=== PATIENT | male | born 1955 | race African-American/Black ===

== ENCOUNTER 2023-11-13 00:48 | Inpatient (IN) | payer BC, OTHER ==
[~2023-11-13] VITALS: Ht 182.9 cm; Wt 67.0 kg
[2023-11-13 01:15] VITALS: PULSE 118; RESP 17; O2SAT 98
[2023-11-13 01:39] LABS: Basophils # (auto) 0 10 ^3/uL (0-0.2); Basophils % (auto) 0.2 % (0.0-2.0); Eosinophils # (auto) 0 10 ^3/uL (0-0.8); Eosinophils % (auto) 0.1 % (0.0-7.0); Hemoglobin 10.3 g/dL (13.5-17.5); Lymphocytes % (auto) 5.6 % (10.0-50.0); Mean Corpuscular Hemoglobin 28.2 pg (28.0-32.0); Mean Corpuscular Hgb Conc. 31.3 g/dL (32.0-36.0); Mean Corpuscular Volume 90.2 fL (80.0-100.0); Monocytes # (auto) 0.8 10 ^3/uL (0-1.3); Monocytes % (auto) 4.4 % (0.0-12.0); Neutrophils # (auto) 16.2 10 ^3/uL (1.6-8.6); Neutrophils % (auto) 89.7 % (37.0-80.0); Red Blood Cells 3.65 10^6/uL (4.5-5.90); Red Cell Distribution Width 17.5 % (11.8-14.3); White Blood Cell 18.1 10^3/uL (4.4-10.8)
[2023-11-13 02:00] VITALS: PULSE 118; RESP 15; O2SAT 99
[2023-11-13 02:03] LABS: Alanine Aminotransferase 11 U/L (7-40); Alkaline Phosphatase 112 U/L (46-116); Anion Gap 11 (5-15); BUN/Creatinine Ratio 19.7 (10.0-20.0); Blood Urea Nitrogen 35 mg/dL (9-23); Calcium 9.7 mg/dL (8.5-10.1); Carbon Dioxide 33 mmol/L (20-30); Chloride 93 mmol/L (98-107); Glucose 138 mg/dL (74-106); Sodium 137 mmol/L (136-145)
[2023-11-13 02:04] LABS: Albumin 4.4 g/dL (3.2-4.8); Aspartate Aminotransferase 15 U/L (13-40); Bilirubin, Total 0.4 mg/dL (0.2-1.0); INR 1.07 (0.9-1.15); Partial Thromboplastin Time 22.9 SEC (24.5-34.5); Prothrombin Time 11.3 sec (9.3-11.8); Total Protein 7.4 g/dL (5.7-8.2)
[2023-11-13] MEDS ORDERED: MORPHINE SULFATE INJ 2 MG/ml SYRG IV PRN (03:00)
[2023-11-13] MEDS ORDERED: ACETAMINOPHEN 325 MG TAB PO PRN (03:00)
[2023-11-13] MEDS ORDERED: DOCUSATE SOD 100 MG CAP PO PRN (03:00)
[2023-11-13] MEDS: cefTRIAXone 1GM/50ML D5W 50 ML IV ONE (03:27)
[2023-11-13] MEDS: POTASSIUM CHL 20 Meq TABLET PO ONE (03:27)
[2023-11-13] MEDS: NITROGLYCERIN 0.4 MG SL TAB SL PRN (03:30)
[2023-11-13 04:19] LABS: Basophils # (auto) 0.1 10 ^3/uL (0-0.2); Basophils % (auto) 0.3 % (0.0-2.0); Eosinophils # (auto) 0 10 ^3/uL (0-0.8); Hematocrit 29.8 % (41.0-53.0); Hemoglobin 9.9 g/dL (13.5-17.5); Lymphocytes # (auto) 0.8 10 ^3/uL (0.4-5.4); Lymphocytes % (auto) 3.9 % (10.0-50.0); Mean Corpuscular Hemoglobin 29.9 pg (28.0-32.0); Mean Corpuscular Hgb Conc. 33.3 g/dL (32.0-36.0); Mean Corpuscular Volume 89.7 fL (80.0-100.0); Monocytes # (auto) 0.7 10 ^3/uL (0-1.3); Monocytes % (auto) 3.7 % (0.0-12.0); Neutrophils # (auto) 18.2 10 ^3/uL (1.6-8.6); Neutrophils % (auto) 92.1 % (37.0-80.0); Red Blood Cells 3.32 10^6/uL (4.5-5.90); Red Cell Distribution Width 17.8 % (11.8-14.3); White Blood Cell 19.8 10^3/uL (4.4-10.8)
[2023-11-13] MEDS: HYDROcodone-ACET 5/325MG TAB PO PRN (04:27)
[2023-11-13 04:39] LABS: Alanine Aminotransferase < 9 U/L (7-40); Albumin 3.8 g/dL (3.2-4.8); Alkaline Phosphatase 97 U/L (46-116); Anion Gap 10 (5-15); Aspartate Aminotransferase 10 U/L (13-40); BUN/Creatinine Ratio 21.6 (10.0-20.0); Blood Urea Nitrogen 41 mg/dL (9-23); Calcium 9.1 mg/dL (8.5-10.1); Carbon Dioxide 32 mmol/L (20-30); Chloride 94 mmol/L (98-107); Glucose 146 mg/dL (74-106); Potassium 2.8 mmol/L (3.5-5.1); Sodium 136 mmol/L (136-145)
[2023-11-13 04:40] LABS: Bilirubin, Total 0.3 mg/dL (0.2-1.0); Total Protein 6.4 g/dL (5.7-8.2)
[2023-11-13] MEDS: SODIUM CHLOR 0.9% PF (SALINE LOCK) 10ML VIAL/SYR IV SCH (05:34)
[2023-11-13] MEDS ORDERED: METOPROLOL TARTRATE 25 MG TAB PO SCH (10:00)
[2023-11-13] MEDS: SODIUM CHLORIDE 0.9% 1,000 ML IV SCH (10:04)
[2023-11-13] MEDS: ASPirin 81 mg TAB PO SCH (10:04)
[2023-11-13 19:30] VITALS: PULSE 96; RESP 13; O2SAT 94
[2023-11-13 21:39] LABS: Urine Bacteria None Seen /hpf (None Seen); Urine WBC None Seen /hpf (0 - 3)
[2023-11-13 22:04] LABS: Urine Blood Negative /uL (Negative); Urine Clarity Clear (Clear); Urine Color Yellow (Yellow); Urine Protein, UAD TRACE (Negative); Urine Specific Gravity 1.025 (1.001-1.035); Urine Urobilinogen Normal (Negative)
[2023-11-13] MEDS: ATORVASTATIN 20 MG TAB PO SCH (22:07)
[2023-11-13] MEDS: cefTRIAXone 1GM/50ML D5W 50 ML IV SCH (22:07)
[2023-11-13 22:08] LABS: Amphetamine Screen, Urine Pos (NEGATIVE); Benzodiazephine Screen, Urine Neg (NEGATIVE)
[2023-11-13 22:09] LABS: Barbiturate Scree,Urine Neg (NEGATIVE); Cocaine Screen, Urine Neg (NEGATIVE); Opiate Scree,Urine Neg (NEGATIVE); Phencyclidine Screen, Urine Neg (NEGATIVE)
[2023-11-14] VITALS (8 sets, daily range): BP systolic 101–129; BP diastolic 62–87; PULSE 53–118; RESP 16–21; TEMP 97.1–99.1; O2SAT 94–98
[2023-11-14] MEDS: ONDANSETRON HCL 4 MG/2 ML VIAL IV PRN (00:02)
[2023-11-14 00:05] LABS: Cannabinoid Screen, Urine Neg (NEGATIVE)
[2023-11-14] MEDS ORDERED: DULO20CA PO (06:43)
[2023-11-14] MEDS ORDERED: FINA5TAB4 PO (06:43)
[2023-11-14 07:05] LABS: Basophils # (auto) 0 10 ^3/uL (0-0.2); Basophils % (auto) 0.1 % (0.0-2.0); Eosinophils # (auto) 0 10 ^3/uL (0-0.8); Eosinophils % (auto) 0.1 % (0.0-7.0); Hematocrit 28.7 % (41.0-53.0); Hemoglobin 9.6 g/dL (13.5-17.5); Lymphocytes # (auto) 1.1 10 ^3/uL (0.4-5.4); Lymphocytes % (auto) 6.8 % (10.0-50.0); Mean Corpuscular Hemoglobin 30.3 pg (28.0-32.0); Mean Corpuscular Hgb Conc. 33.6 g/dL (32.0-36.0); Mean Corpuscular Volume 90.1 fL (80.0-100.0); Monocytes # (auto) 0.8 10 ^3/uL (0-1.3); Monocytes % (auto) 5.1 % (0.0-12.0); Neutrophils # (auto) 14.4 10 ^3/uL (1.6-8.6); Neutrophils % (auto) 87.9 % (37.0-80.0); Nucleated Red Blood Cells % 0.1 %; Red Blood Cells 3.19 10^6/uL (4.5-5.90); Red Cell Distribution Width 17.7 % (11.8-14.3); White Blood Cell 16.4 10^3/uL (4.4-10.8)
[2023-11-14 07:16] LABS: Albumin 3.8 g/dL (3.2-4.8); Alkaline Phosphatase 101 U/L (46-116); Anion Gap 8 (5-15); BUN/Creatinine Ratio 22.3 (10.0-20.0); Blood Urea Nitrogen 37 mg/dL (9-23); Calcium 8.9 mg/dL (8.5-10.1); Carbon Dioxide 30 mmol/L (20-30); Chloride 99 mmol/L (98-107); Glucose 105 mg/dL (74-106); Potassium 3.2 mmol/L (3.5-5.1); Sodium 137 mmol/L (136-145)
[2023-11-14 07:17] LABS: Alanine Aminotransferase < 9 U/L (7-40); Aspartate Aminotransferase 17 U/L (13-40); Bilirubin, Total 0.3 mg/dL (0.2-1.0); Total Protein 6.3 g/dL (5.7-8.2)
[2023-11-14 11:08] LABS: Phosphorus 3.8 mg/dL (2.4-5.1)
[2023-11-14 11:23] LABS: Creatinine, Urine 225.74 mg/dL (30.0-125.0)
[2023-11-14] MEDS: POTASSIUM EFFERVESENT TAB 25 MEQ PO ONE (11:32)
[2023-11-14] MEDS ORDERED: VANCOMYCIN PER PHARMACY 0 MG IV SCH (12:00)
[2023-11-14 12:54] LABS: Magnesium 1.8 mg/dL (1.6-2.6)
[2023-11-14 13:10] LABS: Magnesium 1.8 mg/dL (1.6-2.6)
[2023-11-14] MEDS: chlorproMAZINE HCL 25 MG TAB PO PRN (13:34)
[2023-11-14] MEDS: VANCOMYCIN 1GM/200ML 200 ML IV ONE (16:22)
[2023-11-14] MEDS: SODIUM CHLORIDE 0.9% 1,000 ML IV SCH ×2 (16:23→18:59)
[2023-11-14] MEDS: PANTOPRAZOLE 80 MG in SODIUM CHL 0.9% 100 ML IV ONE (16:23)
[2023-11-14] MEDS: PANTOPRAZOLE 40mg/50ML NS AE 50 ML IV SCH (16:23)
[2023-11-14 20:13] LABS: Rapid Influenza A Negative (Negative); Rapid Influenza B Negative (Negative)
[2023-11-14 20:14] LABS: COVID19 ANTIGEN SOFIA FIA NEGATIVE (NEGATIVE)
[2023-11-14] MEDS: CEFEPIME 2GM/50ML 50 ML IV SCH (20:54)
[2023-11-15] VITALS (9 sets, daily range): BP systolic 102–125; BP diastolic 64–82; PULSE 88–100; RESP 16–20; TEMP 97.4–98.9; O2SAT 96–98
[2023-11-15 07:03] LABS: Basophils # (auto) 0 10 ^3/uL (0-0.2); Eosinophils # (auto) 0 10 ^3/uL (0-0.8); Lymphocytes # (auto) 1.3 10 ^3/uL (0.4-5.4); Monocytes # (auto) 0.5 10 ^3/uL (0-1.3); White Blood Cell 7.9 10^3/uL (4.4-10.8)
[2023-11-15 07:05] LABS: Basophils % (auto) 0.4 % (0.0-2.0); Eosinophils % (auto) 0.5 % (0.0-7.0); Hematocrit 24.3 % (41.0-53.0); Lymphocytes % (auto) 16.5 % (10.0-50.0); Mean Corpuscular Hemoglobin 30.1 pg (28.0-32.0); Mean Corpuscular Hgb Conc. 33.1 g/dL (32.0-36.0); Monocytes % (auto) 6.6 % (0.0-12.0); Red Blood Cells 2.67 10^6/uL (4.5-5.90); Red Cell Distribution Width 16.9 % (11.8-14.3)
[2023-11-15 07:17] LABS: Alkaline Phosphatase 78 U/L (46-116); Anion Gap 5 (5-15); Aspartate Aminotransferase 11 U/L (13-40); BUN/Creatinine Ratio 16.4 (10.0-20.0); Calcium 8.8 mg/dL (8.5-10.1); Carbon Dioxide 29 mmol/L (20-30); Chloride 104 mmol/L (98-107); Glucose 87 mg/dL (74-106); Potassium 3.4 mmol/L (3.5-5.1); Sodium 138 mmol/L (136-145)
[2023-11-15 07:18] LABS: Albumin 3.3 g/dL (3.2-4.8)
[2023-11-15 07:19] LABS: Bilirubin, Total 0.4 mg/dL (0.2-1.0); Total Protein 5.5 g/dL (5.7-8.2)
[2023-11-15 07:21] LABS: Alanine Aminotransferase 9 U/L (7-40); Blood Urea Nitrogen 24 mg/dL (9-23)
[2023-11-15 07:44] LABS: Magnesium 1.8 mg/dL (1.6-2.6)
[2023-11-15] MEDS ORDERED: POTASSIUM EFFERVESENT TAB 25 MEQ PO ONE (08:45)
[2023-11-15] MEDS: POTASSIUM CHL 20MEQ/100ML 100 ML IV ONE (09:43)
[2023-11-15] MEDS ORDERED: VANCOMYCIN 1GM/200ML 200 ML IV SCH (11:00)
[2023-11-15] MEDS: SUCRALFATE 1 GM/10 ML ORAL SUSP PO SCH (18:08)
[2023-11-15] MEDS: PANTOPRAZOLE 40 MG/10 ML VIAL INJ IV SCH (22:22)
[2023-11-16 05:00] VITALS: BP 109/73; PULSE 91; RESP 17; TEMP 98.1; O2SAT 100
[2023-11-16 07:16] LABS: Basophils # (auto) 0 10 ^3/uL (0-0.2); Eosinophils # (auto) 0.1 10 ^3/uL (0-0.8); Eosinophils % (auto) 2.2 % (0.0-7.0); Hematocrit 20.8 % (41.0-53.0); Monocytes # (auto) 0.4 10 ^3/uL (0-1.3); Neutrophils # (auto) 3.6 10 ^3/uL (1.6-8.6)
[2023-11-16 07:19] LABS: Basophils % (auto) 0.7 % (0.0-2.0); Lymphocytes # (auto) 1.1 10 ^3/uL (0.4-5.4); Lymphocytes % (auto) 21.4 % (10.0-50.0); Mean Corpuscular Hgb Conc. 33.5 g/dL (32.0-36.0); Mean Corpuscular Volume 89.6 fL (80.0-100.0); Monocytes % (auto) 7.6 % (0.0-12.0); Neutrophils % (auto) 68.1 % (37.0-80.0); Red Blood Cells 2.33 10^6/uL (4.5-5.90); Red Cell Distribution Width 16.9 % (11.8-14.3); White Blood Cell 5.3 10^3/uL (4.4-10.8)
[2023-11-16 07:36] LABS: Alanine Aminotransferase 16 U/L (7-40); Alkaline Phosphatase 68 U/L (46-116); Anion Gap 5 (5-15); BUN/Creatinine Ratio 11.8 (10.0-20.0); Blood Urea Nitrogen 15 mg/dL (9-23); Calcium 8.5 mg/dL (8.5-10.1); Carbon Dioxide 26 mmol/L (20-30); Chloride 109 mmol/L (98-107); Glucose 94 mg/dL (74-106); Magnesium 1.7 mg/dL (1.6-2.6); Potassium 3.4 mmol/L (3.5-5.1); Sodium 140 mmol/L (136-145)
[2023-11-16 07:37] LABS: Aspartate Aminotransferase 21 U/L (13-40); Bilirubin, Total 0.3 mg/dL (0.2-1.0)
[2023-11-16 07:45] VITALS: PULSE 81
[2023-11-16 09:00] VITALS: BP 112/72; PULSE 86; RESP 17; TEMP 98.3; O2SAT 96
[2023-11-16] MEDS ORDERED: POTASSIUM CHLORIDE 40 MEQ, LIDOCAINE 1% (LOCAL ANESTH.) 4 ML in SODIUM CHL 0.9% 250 ML IV ONE (09:15)
[2023-11-16 10:29] LABS: Hematocrit 22.5 % (41.0-53.0); Hemoglobin 7.4 g/dL (13.5-17.5)
[2023-11-16] MEDS ORDERED: SUCR1SUS26 PO (11:28)
[2023-11-16] MEDS ORDERED: ACET-1882 PO (11:28)
[2023-11-16] MEDS ORDERED: PANT40T PO (11:28)
[2023-11-16] MEDS ORDERED: MELA5TAB16 PO (11:28)
[2023-11-16] MEDS ORDERED: FERRCAP OR (11:28)
[2023-11-16] MEDS ORDERED: NICO14DI9 TD (11:28)
[2023-11-16 12:33] VITALS: BP 94/66; TEMP 36.8
[2023-11-16] MEDS: POTASSIUM EFFERVESENT TAB 25 MEQ PO ONE (12:47)
[2023-11-16 13:03] LABS: % Iron Saturation 20.4 % (20-55)
[2023-11-16 13:22] LABS: Ferritin 205.1 ng/mL (22-322); Folate (Folic Acid) 8.52 ng/mL (>5.38)
== END 2023-11-16 13:20 | disposition home or self-care (01) | DRG 377 ==
LOC: ER 00:48 → EDBD 00:48 → TELE 03:07 → TELE-WESTW 23:49
PROVIDERS: ADMIT Internal Medicine Pulmonary Disease; ATTEND Internal Medicine Pulmonary Disease
DX: K29.71 Gastritis, unspecified, with bleeding (principal); N17.0 Acute kidney failure with tubular necrosis; E87.3 Alkalosis; Z59.00 Homelessness unspecified; Z20.822 Contact with and (suspected) exposure to COVID-19; E86.9 Volume depletion, unspecified; E87.6 Hypokalemia; I10 Essential (primary) hypertension; F15.10 Other stimulant abuse, uncomplicated; I95.9 Hypotension, unspecified; E86.0 Dehydration; E55.9 Vitamin D deficiency, unspecified; D64.9 Anemia, unspecified; N40.0 Benign prostatic hyperplasia without lower urinary tract symptoms; K80.20 Calculus of gallbladder without cholecystitis without obstruction; K76.89 Other specified diseases of liver; Z72.0 Tobacco use
CPT/HCPCS: 36415; 71045; 71250; 74176; 80053; 80307; 81001; 82306; 82570; 82728; 82746; 83540; 83550; 83605; 83615; 83690; 83735; 83880; 84100; 84132; 84300; 84484; 85014; 85018; 85025; 85610; 85730; 86703; 87040; 87081; 87086; 87426; 87804; 93005; 93306; C9113; G0378; J2001; J2405; J3480; Q0161

== ENCOUNTER 2023-11-23 00:47 | Emergency (ER) | payer BC ==
[~2023-11-23] VITALS: Ht 182.9 cm; Wt 76.3 kg
[~2023-11-23 00:47] MED LIST: ACET-1882 PO; DULO20CA PO; FERRCAP OR; FINA5TAB4 PO; MELA5TAB16 PO; NICO14DI9 TD; PANT40T PO; SUCR1SUS26 PO
[2023-11-23 00:50] VITALS: BP 142/102; RESP 22; O2SAT 98
[2023-11-23 01:05] LABS: Basophils # (auto) 0 10 ^3/uL (0-0.2); Basophils % (auto) 0.5 % (0.0-2.0); Eosinophils # (auto) 0.2 10 ^3/uL (0-0.8); Eosinophils % (auto) 1.6 % (0.0-7.0); Hematocrit 31.6 % (41.0-53.0); Hemoglobin 10.4 g/dL (13.5-17.5); Lymphocytes # (auto) 0.9 10 ^3/uL (0.4-5.4); Lymphocytes % (auto) 9.6 % (10.0-50.0); Mean Corpuscular Hemoglobin 29.8 pg (28.0-32.0); Mean Corpuscular Hgb Conc. 32.8 g/dL (32.0-36.0); Mean Corpuscular Volume 90.7 fL (80.0-100.0); Monocytes # (auto) 0.6 10 ^3/uL (0-1.3); Monocytes % (auto) 6.1 % (0.0-12.0); Neutrophils % (auto) 82.2 % (37.0-80.0); Nucleated Red Blood Cells % 0.1 %; Red Blood Cells 3.48 10^6/uL (4.5-5.90); Red Cell Distribution Width 16.7 % (11.8-14.3); White Blood Cell 9.7 10^3/uL (4.4-10.8)
[2023-11-23 01:25] LABS: Alanine Aminotransferase 15 U/L (7-40); Alkaline Phosphatase 113 U/L (46-116); Anion Gap 4 (5-15); Aspartate Aminotransferase 13 U/L (13-40); Calcium 9.3 mg/dL (8.7-10.4); Carbon Dioxide 30 mmol/L (20-30); Chloride 106 mmol/L (98-107); Glucose 108 mg/dL (74-106); Potassium 3.3 mmol/L (3.5-5.1); Sodium 140 mmol/L (136-145)
[2023-11-23 01:26] LABS: Bilirubin, Total 0.3 mg/dL (0.2-1.0)
[2023-11-23 01:37] LABS: Blood Urea Nitrogen < 5 mg/dL (9-23)
[2023-11-23 01:49] VITALS: PULSE 104
[2023-11-23] MEDS: SODIUM CHLORIDE 0.9% 1,000 ML IV ONE (05:28)
[2023-11-23] MEDS: MORPHINE SULFATE INJ 2 MG/ml SYRG IV ONE (05:28)
[2023-11-23] MEDS: ONDANSETRON HCL 4 MG/2 ML VIAL IV ONE (05:29)
[2023-11-23] MEDS: PANTOPRAZOLE 40 MG/10 ML VIAL INJ IV ONE (05:29)
== END 2023-11-23 05:32 | disposition left against medical advice (07) ==
LOC: ER 00:47
DX: K29.70 Gastritis, unspecified, without bleeding (principal); I10 Essential (primary) hypertension; F15.10 Other stimulant abuse, uncomplicated; Z79.899 Other long term (current) drug therapy
CPT/HCPCS: 36415; 71045; 80053; 83690; 83880; 84484; 85025; 93005